=== PATIENT | male | born 1965 | race Caucasian/White ===

== ENCOUNTER → 2017-06-09 | Outpatient (CLI) | payer BC | END | disposition home or self-care (01) | LOC: GMAB 10:34 | PROVIDERS: ATTEND Family Medicine | DX: Z12.5 Encounter for screening for malignant neoplasm of prostate (principal); R53.83 Other fatigue; E78.5 Hyperlipidemia, unspecified | CPT/HCPCS: 84403; 84443; G0103 ==

== ENCOUNTER → 2017-07-16 | Outpatient (CLI) | payer BC | END | disposition home or self-care (01) | LOC: GMAB 10:50 | PROVIDERS: ATTEND Family Medicine | DX: R79.9 Abnormal finding of blood chemistry, unspecified (principal) ==

== ENCOUNTER → 2017-07-16 | Outpatient (CLI) | payer BC ==
--- NOTE | 2017-07-19 08:17 | US ---
Study: Thyroid Gland Ultrasound. Indication: NODULE Technique: Multiplanar grayscale sonographic images of the thyroid gland obtained. Comparison: None Findings: Right lobe measures 4.6 x 3.1 x 2.5 cm. Left lobe measures 4.7 x 1.8 x 2.1 cm. Isthmus measures 0.2 cm. In the lower right lobe there is a dominant 2.4 cm solid nodule. It is slightly hyperechoic. Within the superior right lobe there is a 0.9 cm isoechoic solid nodule. Within the mid left lobe there is a 0.6 cm solid hypoechoic nodule. Impression: Multiple thyroid nodules. Dominant right nodule meets criteria for FNA biopsy. Electronically signed by: Kip Bronson MD 07/19/2017 8:15 AM CDT
== END | disposition home or self-care (01) ==
LOC: US 08:24
PROVIDERS: ATTEND Family Medicine
DX: E04.1 Nontoxic single thyroid nodule (principal)

== ENCOUNTER → 2018-07-14 | Outpatient (CLI) | payer BC | LOC: GMAE 11:13 | PROVIDERS: ATTEND Family Medicine | DX: Z00.00 Encounter for general adult medical examination without abnormal findings (principal) ==

== ENCOUNTER → 2018-12-22 | Outpatient (CLI) | payer BC ==
--- NOTE | 2018-12-22 17:08 | US ---
EXAM DESCRIPTION: Soft Tissue,Extremity: ULTRASOUND. CLINICAL HISTORY: 53 years Male MASS. Palpable on the right wrist. Onset one month ago. No change in size. COMPARISON: None Available. TECHNIQUE: Transcutaneous scanning: Cifuentes-scale and Doppler modes. FINDINGS: Mostly anechoic structure with circumscribed and minimally ill-defined emanuel on the dorsum of the right wrist. Dimensions 1.9 x 1.3 cm. Vascular flow on one margin but no vascular flow within the mass. No fluid fluid levels. Wider than tall orientation with posterior acoustic enhancement. No large calcifications. No dominant solid mass. IMPRESSION: Probable ganglion cyst on the dorsum of the right wrist which is palpable. Thin capsule with no solid component and no abnormal vascularity. Consider orthopedic consult/ MRI scan of the right wrist. 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
== END ==
LOC: US 10:22
PROVIDERS: ATTEND Family Medicine
DX: M25.531 Pain in right wrist (principal)

== ENCOUNTER → 2019-10-05 | Outpatient (CLI) | payer BC | LOC: GMAE 10:34 | PROVIDERS: ATTEND Family Medicine | DX: Z00.00 Encounter for general adult medical examination without abnormal findings (principal) ==